=== PATIENT | male | born 1980 | race Caucasian/White ===

== ENCOUNTER 2024-03-27 00:13 | Observation (INO) | payer BC ==
[2024-03-27] MEDS ORDERED: Acetaminophen 325 MG TAB ONE (21:35)
[2024-03-28] MEDS ORDERED: Pantoprazole DR 40 MG TAB ONE (11:01)
[2024-03-28] MEDS ORDERED: Allopurinol 100 MG TAB ONE (11:02)
[2024-03-28] MEDS ORDERED: Acetaminophen 325 MG TAB ONE (14:22)
== END 2024-03-28 14:45 | disposition home or self-care (01) ==
LOC: CSHTELE 00:13
PROVIDERS: ADMIT Family Medicine; ATTEND Internal Medicine
DX: R41.0 Disorientation, unspecified (principal); R61 Generalized hyperhidrosis; D72.829 Elevated white blood cell count, unspecified; E83.52 Hypercalcemia; M10.9 Gout, unspecified; Z79.899 Other long term (current) drug therapy
CPT/HCPCS: 70553; 76376; 82306; 82340; 87040

== ENCOUNTER 2024-05-31 12:40 | Outpatient (CLI) | payer BC ==
[~2024-05-31 12:40] MED LIST: Iopamidol 370 76% 100 ML VIAL ONE
== END 2024-05-31 12:41 | disposition home or self-care (01) ==
LOC: CSHCT 12:40
PROVIDERS: ATTEND Physician Assistant
DX: I71.20 Thoracic aortic aneurysm, without rupture, unspecified (principal)
CPT/HCPCS: 71275; Q9967